=== PATIENT | male | born 2000 | race African-American/Black ===

== ENCOUNTER 2021-08-14 05:00 | Emergency (ER) | payer MEDICAID ==
[~2021-08-14] VITALS: Ht 167.6 cm; Wt 64.0 kg
[2021-08-14] MEDS ORDERED: KETOROLAC 30MG/ML VIAL IV STA (05:25)
[2021-08-14] MEDS ORDERED: SODIUM CHLORIDE 0.9% 1,000 ML IV ONE (05:30)
[2021-08-14 06:29] LABS: BASOPHILS % 0.7 % (0.0-2.0); EOSINOPHILS % 0.7 % (0.0-5.0); HEMATOCRIT. 48.6 % (42.0-52.0); HEMOGLOBIN. 16.7 g/dL (14.0-18.0); LYMPHOCYTES % 27.2 % (20.0-50.0); MEAN CORPUSCULAR HEMOGLOBIN 30.1 pg (28.0-32.0); MEAN CORPUSCULAR VOLUME 87.4 fL (80.0-94.0); MONOCYTES % 5.9 % (2.0-8.0); NEUTROPHILS % 65.5 % (40.0-76.0); RED BLOOD CELL COUNT 5.56 mill/uL (4.7-6.1); RED CELL DISTRIBUTION WIDTH 12.6 % (11.6-14.6)
[2021-08-14 07:50] LABS: CHLORIDE 106 mEq/L (98-107)
[2021-08-14 07:54] LABS: ETHANOL BLOOD < 10 mg/dL
[2021-08-14] MEDS ORDERED: LIDOCAINE 5% PATCH TOP SCH (09:45)
[2021-08-14] MEDS ORDERED: LIDO700A15 TP (10:06)
[2021-08-14] MEDS ORDERED: IBUP-2029 MT (10:06)
[2021-08-14] MEDS ORDERED: BACL-141 MT (10:06)
[2021-08-14 11:10] VITALS: BP 117/80
== END 2021-08-14 11:12 | disposition home or self-care (01) ==
LOC: ER 05:00
DX: R07.89 Other chest pain (principal); F12.10 Cannabis abuse, uncomplicated; I10 Essential (primary) hypertension; Z13.9 Encounter for screening, unspecified
CPT/HCPCS: 36415; 71045; 80053; 80320; 83880; 84484; 85025; 85379; 93005; 96361; 96374; 99285; J1885; J7030; G0480